=== PATIENT | female | born 1980 | race Two or more races ===

== ENCOUNTER 2018-04-06 16:43 | Emergency (ER) | payer MEDICAID ==
[~2018-04-06] VITALS: Ht 165.1 cm; Wt 89.4 kg
[2018-04-06] MEDS ORDERED: NKM (16:53)
[2018-04-06 16:59] VITALS: BP 118/61
[2018-04-06] MEDS ORDERED: Acetaminophen 500mg (ES) tab ORAL ONE (17:30)
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
[2018-04-06] MEDS ORDERED: VIBRAMYCIN100 MG ORAL (18:07)
[2018-04-06 18:13] VITALS: BP 118/61
== END 2018-04-06 18:50 | disposition home or self-care (01) ==
LOC: EMR 17:19
DX: R21 Rash and other nonspecific skin eruption (principal); W57.XXXA Bitten or stung by nonvenomous insect and other nonvenomous arthropods, initial encounter; Y92.9 Unspecified place or not applicable; Z88.0 Allergy status to penicillin
CPT/HCPCS: 99283